=== PATIENT | female | born 1980 | race Caucasian/White ===

== ENCOUNTER 2023-10-28 13:36 | Emergency (ER) | payer OTHER ==
[~2023-10-28] VITALS: Ht 167.6 cm; Wt 68.0 kg
[2023-10-28 14:23] VITALS: BP 193/80
[2023-10-28] MEDS ORDERED: CEPH500 PO ×2 (16:58)
== END 2023-10-28 16:24 | disposition home or self-care (01) ==
LOC: ER 13:36
DX: S67.190A Crushing injury of right index finger, initial encounter (principal); W23.0XXA Caught, crushed, jammed, or pinched between moving objects, initial encounter
CPT/HCPCS: 73140; 99283-25; A9270